=== PATIENT | female | born 1975 | race Caucasian/White ===

== ENCOUNTER 2017-10-14 18:05 | Emergency (ER) | payer OTHER ==
[~2017-10-14] VITALS: Ht 165.1 cm; Wt 112.0 kg
[~2017-10-14 18:05] MED LIST: BACTRIM DS TAB1 EACH PO; BENICAR40 MG PO; CARISOPRODOL 3350 MG PO; CIPROFLOXACIN500 M1 PO; CITRATE OF MAG296 ML PO; DIFLUCAN150 MG PO; FLOMAX0.4 MG; HYDROCHLOROTHIA25 M2; IBUPROFEN 400400 M1 PO; IBUPROFEN 600600 M1 PO; IRON PO; IRON325; LABETALOL 100100 MG PO; MEDROLDOSEPACK PO; NAPROSYN500 MG PO; NORCO 5-325 TA1 EACH PO; NORVASC10 MG PO; PERCOCET 5-3251 EACH PO; TRAMADOL 50 MG50 MG PO; TYLENOL W/CODEI1 TA2 PO; ULTRAM 50MG TAB50 MG PO; ZOFRAN 4 MG ORAL4 M1 DIS; ZOFRAN ODT4 MG PO; ZOFRAN4 MG PO
[2017-10-14 18:20] VITALS: BP 209/136
[2017-10-14] MEDS ORDERED: PREDNISONE 20 M20 MG PO (18:45)
[2017-10-14] MEDS ORDERED: NORCO 5-325 TA1 EACH PO (18:45)
[2017-10-14] MEDS ORDERED: FLEXERIL PO (18:45)
== END 2017-10-14 19:10 | disposition home or self-care (01) ==
LOC: ER 18:05
DX: M54.41 Lumbago with sciatica, right side (principal); I10 Essential (primary) hypertension; Z87.442 Personal history of urinary calculi; Z91.041 Radiographic dye allergy status; Z88.5 Allergy status to narcotic agent; Z91.013 Allergy to seafood; Z88.8 Allergy status to other drugs, medicaments and biological substances

== ENCOUNTER 2018-07-20 10:12 | Emergency (ER) | payer OTHER ==
[~2018-07-20] VITALS: Ht 165.1 cm; Wt 103.4 kg
[~2018-07-20 10:12] MED LIST changes: +FLEXERIL PO; +HYDROCODONE-AP1 EAC6 PO; +ONDANSETRON HCL4 M2 PO; +PREDNISONE 20 M20 MG PO
[2018-07-20 10:28] LABS: URINE BILIRUBIN NEGATIVE (Negative); URINE BLOOD 3+ (Negative); URINE CLARITY SL CLOUDY; URINE COLOR YELLOW; URINE GLUCOSE-RANDOM* TRACE (Negative); URINE KETONES NEGATIVE (Negative); URINE LEUKOCYTES-REFLEX NEGATIVE (Negative); URINE NITRITE-REFLEX NEGATIVE (Negative); URINE PROTEIN (DIPSTICK) 1+ (Negative); URINE SPECIFIC GRAVITY 1.025 (1.005-1.035); URINE UROBILINOGEN 0.2 E.U./dl (0.2-1.0)
[2018-07-20 10:47] LABS: SQUAMOUS 4-10 Moderate /LPF (0-3)
[2018-07-20 10:48] LABS: BACTERIA-REFLEX 1-9 Few /HPF (None Seen); CASTS None Seen /LPF (None Seen); CRYSTALS None Seen /LPF (None Seen); URINE RBC >20 Many /HPF (0-2); URINE WBC-REFLEX 6-15 Few /HPF (0-5)
[2018-07-20 10:56] LABS: ABSOLUTE NEUTROPHILS 6.3 thou/uL (1.4-8.2); BASOPHILS 1.3 % (0.0-2.0); EOSINOPHILS 2.5 % (0.0-3.0); HEMATOCRIT 42.8 % (37.0-47.0); HEMOGLOBIN 14.5 gm/dL (12.0-15.0); LYMPHOCYTES 23.3 % (24.0-44.0); MCH 29.2 pg (26.0-34.0); MCHC 33.8 g/dL (28.0-37.0); MCV 86.2 fL (80.0-100.0); MONOCYTES 5.6 % (1.0-8.0); PLATELET COUNT 352 thou/uL (150-400); POLYS 67.3 % (36.0-66.0); RBC 4.97 mil/uL (4.20-5.00); RDW 14.3 % (10.5-14.5); WBC 9.3 thou/uL (4.0-11.0)
[2018-07-20 11:05] LABS: POTASSIUM 3.7 mmol/L (3.5-5.1)
[2018-07-20 11:11] LABS: TOTAL BILIRUBIN 0.2 mg/dL (<0.1-1.0); TOTAL PROTEIN 8.6 g/dL (6.4-8.2)
[2018-07-20] MEDS ORDERED: COREG6.25 MG PO (11:39)
[2018-07-20] MEDS ORDERED: LISINOPRIL40 MG PO (11:39)
[2018-07-20] MEDS ORDERED: ASPIR 8181 MG PO (11:40)
[2018-07-20] MEDS ORDERED: LIPITOR40 MG PO (11:40)
[2018-07-20] MEDS ORDERED: NORCO 5-325 TA1 EACH PO (11:54)
[2018-07-20] MEDS ORDERED: BACTRIM DS TAB1 EACH PO (11:54)
[2018-07-20 12:25] VITALS: BP 203/117
== END 2018-07-20 12:28 | disposition home or self-care (01) ==
LOC: ER 10:12
PROVIDERS: Nurse Practitioner Family
DX: N39.0 Urinary tract infection, site not specified (principal); R31.9 Hematuria, unspecified; I10 Essential (primary) hypertension; Z91.041 Radiographic dye allergy status; Z88.5 Allergy status to narcotic agent; Z91.013 Allergy to seafood; Z88.6 Allergy status to analgesic agent; Z88.8 Allergy status to other drugs, medicaments and biological substances; Z87.442 Personal history of urinary calculi

== ENCOUNTER 2018-09-12 13:34 | Emergency (ER) | payer OTHER ==
[~2018-09-12] VITALS: Ht 165.1 cm; Wt 103.0 kg
[~2018-09-12 13:34] MED LIST changes: +ASPIR 8181 MG PO; +COREG6.25 MG PO; +LIPITOR40 MG PO; +LISINOPRIL40 MG PO
[2018-09-12 13:56] LABS: URINE BILIRUBIN NEGATIVE (Negative); URINE BLOOD 3+ (Negative); URINE CLARITY CLOUDY; URINE COLOR YELLOW; URINE GLUCOSE-RANDOM* TRACE (Negative); URINE KETONES NEGATIVE (Negative); URINE LEUKOCYTES 1+ (Negative); URINE NITRITE NEGATIVE (Negative); URINE PROTEIN (DIPSTICK) NEGATIVE (Negative); URINE UROBILINOGEN 0.2 E.U./dl (0.2-1.0)
[2018-09-12 14:04] LABS: CASTS None Seen /LPF (None Seen); CRYSTALS None Seen /LPF (None Seen); SQUAMOUS 4-10 Moderate /LPF (0-3); URINE RBC >20 Many /HPF (0-2)
[2018-09-12 14:05] LABS: BACTERIA 1-9 Few /HPF (None Seen); URINE WBC 0-5 Rare /HPF (0-5)
[2018-09-12 15:54] LABS: ANION GAP 10 mmol/L (7-16); BUN 19 mg/dL (7-18); CALCIUM 9.1 mg/dL (8.5-10.1); CHLORIDE 103 mmol/L (98-107); CO2 23 mmol/L (21-32); CREATININE 0.9 mg/dL (0.6-1.0); GLUCOSE 97 mg/dL (74-106); POTASSIUM 4.4 mmol/L (3.5-5.1); SODIUM 136 mmol/L (136-145)
[2018-09-12 16:00] LABS: ALBUMIN 3.4 g/dL (3.4-5.0); LIPASE 223 U/L (73-393); SGOT < 5 U/L (15-37); SGPT 29 U/L (30-65); TOTAL BILIRUBIN 0.1 mg/dL (<0.1-1.0); TOTAL PROTEIN 7.9 g/dL (6.4-8.2)
[2018-09-12 16:27] LABS: ABSOLUTE NEUTROPHILS 4.1 thou/uL (1.4-8.2); BASOPHILS 1.3 % (0.0-2.0); EOSINOPHILS 3.5 % (0.0-3.0); HEMATOCRIT 39.7 % (37.0-47.0); HEMOGLOBIN 13.5 gm/dL (12.0-15.0); LYMPHOCYTES 28.6 % (24.0-44.0); MCH 29.8 pg (26.0-34.0); MCHC 34.1 g/dL (28.0-37.0); MCV 87.3 fL (80.0-100.0); MONOCYTES 5.7 % (1.0-8.0); PLATELET COUNT 308 thou/uL (150-400); POLYS 60.9 % (36.0-66.0); RBC 4.55 mil/uL (4.20-5.00); RDW 14.3 % (10.5-14.5); WBC 6.8 thou/uL (4.0-11.0)
[2018-09-12] MEDS ORDERED: NORCO 5-325 TA1 EAC1 PO (17:35)
[2018-09-12] MEDS ORDERED: BACTRIM DS TAB1 EACH PO (17:36)
[2018-09-12 17:43] VITALS: BP 160/91
== END 2018-09-12 17:44 | disposition home or self-care (01) ==
LOC: ER 13:34
PROVIDERS: Emergency Medicine; Physician Assistant
DX: N39.0 Urinary tract infection, site not specified (principal); I10 Essential (primary) hypertension; Z88.5 Allergy status to narcotic agent; Z91.041 Radiographic dye allergy status; Z91.013 Allergy to seafood; Z88.6 Allergy status to analgesic agent; Z88.8 Allergy status to other drugs, medicaments and biological substances; Z87.442 Personal history of urinary calculi